=== PATIENT | female | born 1995 | race Caucasian/White ===

== ENCOUNTER 2023-07-29 12:01 | Inpatient (IN) | payer MEDICAID ==
[~2023-07-29] VITALS: Ht 162.6 cm; Wt 64.4 kg
[2023-07-29 12:30] VITALS: BP_SYST 131; PULSE 152; RESP 19; TEMP 97.9; O2SAT 98
[2023-07-29] MEDS: NACL 0.9% 1,000 ML IV ONE ×3 (13:13→21:57)
[2023-07-29 13:34] LABS: BASOPHILS % (AUTO) 0.1 % (0.0-2.0); HEMATOCRIT 51.2 % (36-48); HEMOGLOBIN 18.6 g/dL (12.0-16.0); LYMPHOCYTES # (AUTO) 0.1 K/uL (1.0-5.5); LYMPHOCYTES % (AUTO) 1.2 % (20.5-51.5); MEAN CORPUSCULAR HEMOGLOBIN 34 pg (27-31); MEAN CORPUSCULAR HGB CONC 36 % (32-36); MEAN CORPUSCULAR VOLUME 94 fL (79.0-98.0); MONOCYTES # (AUTO) 0.2 K/uL (0.0-1.0); MONOCYTES % (AUTO) 2.2 % (1.7-9.3); NEUTROPHILS # (AUTO) 9.8 K/uL (1.8-7.7); NEUTROPHILS % (AUTO) 96.5 % (40.0-70.0); PLATELET COUNT (AUTO) 234 K/uL (130-430); RED BLOOD CELL COUNT(AUTO) 5.47 MIL/uL (4.2-6.2); WHITE BLOOD COUNT (AUTO) 10.1 K/uL (4.8-10.8)
[2023-07-29] MEDS: ONDANSETRON HCL 4 MG/2 ML VIAL IVP ONE ×2 (13:43→19:46)
[2023-07-29 13:45] LABS: ANION GAP 18 (5-15); CALCIUM 10.3 mg/dL (8.4-11.0); CARBON DIOXIDE 23 mmol/L (23-29); CHLORIDE 91 mmol/L (98-107); CREATININE 2.33 mg/dL (0.55-1.30); GFR AFRICAN AMERICAN 32 mL/min (>90); GLUCOSE 81 mg/dL (74-106); POTASSIUM 4.4 mmol/L (3.5-5.1); SODIUM SERUM 132 mmol/L (136-145); UREA NITROGEN, BLOOD 24 mg/dL (8-21)
[2023-07-29 14:02] LABS: GFR NON AFRICAN-AMERICAN 26 mL/min (>90)
[2023-07-29 14:31] LABS: ACETAMINOPHEN < 1 ug/mL (1-30); ALCOHOL, BLOOD < 3 mg/dL (<10); SALICYLATE < 1 mg/dL (3-30)
[2023-07-29 14:48] LABS: COVID19 ANTIGEN SOFIA FIA NEGATIVE (NEGATIVE)
[2023-07-29 14:49] LABS: INFLUENZA TYPE A Negative (NEGATIVE); INFLUENZA TYPE B NEGATIVE (NEGATIVE)
[2023-07-29 14:55] LABS: CREATINE KINASE, TOTAL 163 U/L (26-192)
[2023-07-29 15:43] LABS: ALBUMIN 4.5 g/dL (3.4-4.8); BILIRUBIN,DIRECT 8.1 mg/dL (0.0-0.3); LIPASE 48 U/L (16-77); TOTAL BILIRUBIN 10.8 mg/dL (0.0-1.0); TOTAL PROTEIN, SERUM 8.4 g/dL (6.4-8.3)
[2023-07-29] MEDS: LORazepam 2 MG/ML VIAL IVP ONE ×2 (15:46→19:46)
[2023-07-29] MEDS: KETOROLAC TROMETHAMINE 30 MG VIAL IVP ONE (15:46)
[2023-07-29 16:18] LABS: ALANINE AMINOTRANSFERASE 15143 U/L (12-78); ASPARTATE AMINOTRANSFERASE 10554 U/L (10-37)
[2023-07-29 16:58] LABS: BILIRUBIN,URINE 3+ (NEGATIVE); BLOOD, URINE 2+ (NEGATIVE); CLARITY/URINE CLEAR (CLEAR); GLUCOSE,URINE TRACE (NEGATIVE); KETONES,URINE 1+ (NEGATIVE); LEUKOCYTE ESTERASE ,URINE NEGATIVE (NEGATIVE); PROTEIN URINE 3+ (NEGATIVE)
[2023-07-29 17:07] LABS: COLOR,URINE AMBER (YELLOW); NITRITE, URINE NEGATIVE (NEGATIVE)
[2023-07-29 17:08] LABS: BACTERIA,URINE FEW /HPF (None Seen); CALCIUM OXALATE CRYSTALS,UR 0-10 /HPF (None Seen); MUCUS,URINE None Seen /LPF (None Seen); RBC,URINE NONE SEEN /HPF (0-3); WBC,URINE 0-3 /HPF (0-3)
[2023-07-29] MEDS ORDERED: MAGNESIUM SULFATE 50 ML IV PRN (19:15)
[2023-07-29] MEDS ORDERED: MORPHINE 2 MG/ML INJ. SYRINGE IVP PRN (19:15)
[2023-07-29] MEDS ORDERED: MUPIROCIN 2% TOPICAL OINTMENT 22 GM NS PRN (19:15)
[2023-07-29] MEDS: ACETYLCYSTEINE 20% 6000 MG/30 ML VIAL (ORAL) PO ONE (20:10)
[2023-07-29] MEDS: THIAMINE HCL 100 MG TABLET PO SCH (20:30)
[2023-07-29 21:31] VITALS: O2SAT 100
[2023-07-29 21:40] VITALS: BP_SYST 133; PULSE 102; RESP 18; TEMP 98.2
[2023-07-29] MEDS: LACTULOSE 20 GM/30 ML UDC PO ONE (22:11)
[2023-07-29] MEDS: ONDANSETRON HCL 4 MG/2 ML VIAL IVP PRN (22:52)
[2023-07-29 22:55] VITALS: O2SAT 100
[2023-07-30 06:00] VITALS: BP_SYST 131; PULSE 92; RESP 17; TEMP 97.1; O2SAT 100
[2023-07-30 06:50] LABS: CALCIUM 8.4 mg/dL (8.4-11.0); CREATININE 3.49 mg/dL (0.55-1.30); POTASSIUM 4.5 mmol/L (3.5-5.1)
[2023-07-30 07:03] LABS: TOTAL BILIRUBIN 7.6 mg/dL (0.0-1.0); TOTAL PROTEIN, SERUM 5.4 g/dL (6.4-8.3)
[2023-07-30 07:48] VITALS: BP_SYST 127; PULSE 78; RESP 16; TEMP 98.4; O2SAT 100
[2023-07-30 08:03] LABS: BASOPHILS % (AUTO) 0.2 % (0.0-2.0); EOSINOPHILS # (AUTO) 0.1 K/uL (0.0-0.4); EOSINOPHILS % (AUTO) 2.4 % (0.0-4.0); HEMATOCRIT 37.5 % (36-48); HEMOGLOBIN 13.3 g/dL (12.0-16.0); LYMPHOCYTES # (AUTO) 0.4 K/uL (1.0-5.5); LYMPHOCYTES % (AUTO) 11.7 % (20.5-51.5); MEAN CORPUSCULAR HEMOGLOBIN 34 pg (27-31); MEAN CORPUSCULAR HGB CONC 35 % (32-36); MEAN CORPUSCULAR VOLUME 95 fL (79.0-98.0); MONOCYTES # (AUTO) 0.1 K/uL (0.0-1.0); MONOCYTES % (AUTO) 3.6 % (1.7-9.3); NEUTROPHILS # (AUTO) 2.8 K/uL (1.8-7.7); NEUTROPHILS % (AUTO) 82.1 % (40.0-70.0); PLATELET COUNT (AUTO) 148 K/uL (130-430); RED BLOOD CELL COUNT(AUTO) 3.96 MIL/uL (4.2-6.2); RED CELL DISTRIBUTION WIDTH 12.1 % (9.0-15.0); WHITE BLOOD COUNT (AUTO) 3.5 K/uL (4.8-10.8)
[2023-07-30] MEDS: MORPHINE 2 MG/ML INJ. SYRINGE IVP PRN (08:26)
[2023-07-30 09:27] VITALS: O2SAT 100
[2023-07-30] MEDS: NACL 0.9% 1,000 ML IV SCH (10:58)
[2023-07-30 12:07] VITALS: BP_SYST 136; PULSE 76; RESP 16; TEMP 98.6; O2SAT 100
[2023-07-30] MEDS: LORazepam 2 MG/ML VIAL IVP PRN (12:47)
[2023-07-30 16:00] VITALS: BP_SYST 117; PULSE 88; RESP 16; TEMP 98.6; O2SAT 100
[2023-07-30] MEDS: D5W IV ONE ×3 (17:20→22:00)
[2023-07-30] MEDS: ACETYLCYSTEINE IV ONE ×3 (17:20→22:00)
[2023-07-30 18:00] LABS: BARBITURATE, URINE NEGATIVE (NEG <=200); BENZODIAZEPINE, URINE POSITIVE (NEG <=150); CANNABINOID, URINE POSITIVE (NEG <=50); COCAINE, URINE NEGATIVE (NEG <=150); METHAMPHETAMINES SCREEN,URINE POSITIVE (NEG <=500); OPIATE, URINE POSITIVE (NEG <=100); PHENCYCLIDINE SCREEN,URINE NEGATIVE (NEG <=25); UR TRICYCLIC ANTIDEPRESSANTS NEGATIVE (NEG <=300); URINE AMPHETAMINE NEGATIVE (NEG <=500); URINE METHADONE NEGATIVE (NEG <=200); URINE OXYCODONE SCREEN NEGATIVE (NEG <=100)
[2023-07-31 07:05] LABS: BASOPHILS % (AUTO) 0.5 % (0.0-2.0); EOSINOPHILS # (AUTO) 0.1 K/uL (0.0-0.4); EOSINOPHILS % (AUTO) 2.9 % (0.0-4.0); HEMATOCRIT 36.6 % (36-48); HEMOGLOBIN 12.9 g/dL (12.0-16.0); LYMPHOCYTES # (AUTO) 0.6 K/uL (1.0-5.5); LYMPHOCYTES % (AUTO) 11.8 % (20.5-51.5); MEAN CORPUSCULAR HEMOGLOBIN 34 pg (27-31); MEAN CORPUSCULAR HGB CONC 35 % (32-36); MEAN CORPUSCULAR VOLUME 95 fL (79.0-98.0); MONOCYTES # (AUTO) 0.3 K/uL (0.0-1.0); MONOCYTES % (AUTO) 5.6 % (1.7-9.3); NEUTROPHILS # (AUTO) 3.8 K/uL (1.8-7.7); NEUTROPHILS % (AUTO) 79.2 % (40.0-70.0); PLATELET COUNT (AUTO) 141 K/uL (130-430); RED BLOOD CELL COUNT(AUTO) 3.85 MIL/uL (4.2-6.2); RED CELL DISTRIBUTION WIDTH 12.1 % (9.0-15.0); WHITE BLOOD COUNT (AUTO) 4.8 K/uL (4.8-10.8)
[2023-07-31 07:18] LABS: INR 1.7 (0.8-1.2); PROTHROMBIN TIME 17.6 SECS (9.5-12.5)
[2023-07-31 07:31] LABS: ALBUMIN 2.8 g/dL (3.4-4.8); CALCIUM 8.7 mg/dL (8.4-11.0); CREATININE 4.13 mg/dL (0.55-1.30); POTASSIUM 3.9 mmol/L (3.5-5.1); TOTAL BILIRUBIN 7.9 mg/dL (0.0-1.0); TOTAL PROTEIN, SERUM 5.3 g/dL (6.4-8.3)
[2023-07-31 08:00] VITALS: BP_SYST 145; PULSE 79; RESP 16; TEMP 98.4; O2SAT 100
[2023-07-31] MEDS: FOLIC ACID 1 MG TABLET PO SCH (08:27)
[2023-07-31 10:05] VITALS: O2SAT 100
[2023-07-31 11:30] VITALS: BP_SYST 114; PULSE 88; RESP 17; TEMP 97.5; O2SAT 98
[2023-07-31 15:52] VITALS: BP_SYST 132; PULSE 82; RESP 16; TEMP 98.2; O2SAT 100
[2023-07-31 20:30] VITALS: BP_SYST 133; PULSE 85; RESP 18; TEMP 97.9; O2SAT 95
[2023-07-31 22:00] VITALS: O2SAT 96
[2023-08-01 01:00] VITALS: BP_SYST 129; PULSE 83; RESP 18; TEMP 98.7; O2SAT 95
[2023-08-01 06:44] LABS: BASOPHILS % (AUTO) 0.5 % (0.0-2.0); EOSINOPHILS # (AUTO) 0.3 K/uL (0.0-0.4); EOSINOPHILS % (AUTO) 7.4 % (0.0-4.0); HEMATOCRIT 32.5 % (36-48); HEMOGLOBIN 11.4 g/dL (12.0-16.0); LYMPHOCYTES # (AUTO) 0.7 K/uL (1.0-5.5); LYMPHOCYTES % (AUTO) 19.9 % (20.5-51.5); MEAN CORPUSCULAR HEMOGLOBIN 34 pg (27-31); MEAN CORPUSCULAR HGB CONC 35 % (32-36); MEAN CORPUSCULAR VOLUME 96 fL (79.0-98.0); MONOCYTES # (AUTO) 0.5 K/uL (0.0-1.0); MONOCYTES % (AUTO) 12.8 % (1.7-9.3); NEUTROPHILS # (AUTO) 2.1 K/uL (1.8-7.7); NEUTROPHILS % (AUTO) 59.4 % (40.0-70.0); PLATELET COUNT (AUTO) 136 K/uL (130-430); RED CELL DISTRIBUTION WIDTH 12.6 % (9.0-15.0); WHITE BLOOD COUNT (AUTO) 3.5 K/uL (4.8-10.8)
[2023-08-01 08:00] VITALS: BP_SYST 122; PULSE 75; RESP 18; TEMP 97.5; O2SAT 99
[2023-08-01 10:47] LABS: BASOPHILS % (AUTO) 0.4 % (0.0-2.0); EOSINOPHILS # (AUTO) 0.2 K/uL (0.0-0.4); EOSINOPHILS % (AUTO) 4.8 % (0.0-4.0); HEMATOCRIT 32.7 % (36-48); HEMOGLOBIN 11.6 g/dL (12.0-16.0); LYMPHOCYTES # (AUTO) 0.4 K/uL (1.0-5.5); LYMPHOCYTES % (AUTO) 10.7 % (20.5-51.5); MEAN CORPUSCULAR HEMOGLOBIN 34 pg (27-31); MEAN CORPUSCULAR HGB CONC 35 % (32-36); MEAN CORPUSCULAR VOLUME 96 fL (79.0-98.0); MONOCYTES # (AUTO) 0.5 K/uL (0.0-1.0); NEUTROPHILS # (AUTO) 2.4 K/uL (1.8-7.7); NEUTROPHILS % (AUTO) 70.1 % (40.0-70.0); PLATELET COUNT (AUTO) 146 K/uL (130-430); RED BLOOD CELL COUNT(AUTO) 3.41 MIL/uL (4.2-6.2); RED CELL DISTRIBUTION WIDTH 12.7 % (9.0-15.0); WHITE BLOOD COUNT (AUTO) 3.4 K/uL (4.8-10.8)
[2023-08-01 11:04] LABS: INR 1.5 (0.8-1.2); PROTHROMBIN TIME 15.6 SECS (9.5-12.5)
[2023-08-01 11:12] LABS: ALBUMIN 2.6 g/dL (3.4-4.8); CALCIUM 8.2 mg/dL (8.4-11.0); CREATININE 3.26 mg/dL (0.55-1.30); POTASSIUM 3.4 mmol/L (3.5-5.1); TOTAL BILIRUBIN 6.8 mg/dL (0.0-1.0); TOTAL PROTEIN, SERUM 5.2 g/dL (6.4-8.3)
[2023-08-01 12:00] VITALS: BP_SYST 123; PULSE 74; RESP 18; TEMP 97.3; O2SAT 96
[2023-08-01 16:00] VITALS: BP_SYST 120; RESP 18; TEMP 98.2; O2SAT 99
[2023-08-01 20:30] VITALS: BP_SYST 128; PULSE 78; RESP 20; TEMP 97.5; O2SAT 96
[2023-08-01 22:00] VITALS: O2SAT 95
[2023-08-01] MEDS: DOCUSATE SODIUM 100 MG CAPSULE PO PRN (22:30)
[2023-08-02] MEDS: POTASSIUM CHLORIDE 20 MEQ TABLET.ER PO PRN (00:25)
[2023-08-02 01:00] VITALS: BP_SYST 129; PULSE 84; RESP 20; TEMP 98.7; O2SAT 96
[2023-08-02 03:06] LABS: HEPATITIS A AB, IgM Negative (Negative); HEPATITIS B CORE AB, IgM Negative (Negative); HEPATITIS B SURFACE AG Negative (Negative); HEPATITIS C VIRUS AB Non Reactive (Non Reactive)
[2023-08-02 06:14] LABS: BASOPHILS % (AUTO) 0.4 % (0.0-2.0); EOSINOPHILS # (AUTO) 0.3 K/uL (0.0-0.4); EOSINOPHILS % (AUTO) 6.9 % (0.0-4.0); HEMATOCRIT 31.7 % (36-48); HEMOGLOBIN 11.1 g/dL (12.0-16.0); MEAN CORPUSCULAR HEMOGLOBIN 34 pg (27-31); MEAN CORPUSCULAR HGB CONC 35 % (32-36); MEAN CORPUSCULAR VOLUME 97 fL (79.0-98.0); MONOCYTES # (AUTO) 0.7 K/uL (0.0-1.0); MONOCYTES % (AUTO) 16.9 % (1.7-9.3); NEUTROPHILS # (AUTO) 1.9 K/uL (1.8-7.7); NEUTROPHILS % (AUTO) 49.8 % (40.0-70.0); PLATELET COUNT (AUTO) 145 K/uL (130-430); RED BLOOD CELL COUNT(AUTO) 3.28 MIL/uL (4.2-6.2); RED CELL DISTRIBUTION WIDTH 12.7 % (9.0-15.0); WHITE BLOOD COUNT (AUTO) 3.9 K/uL (4.8-10.8)
[2023-08-02 06:31] LABS: INR 1.4 (0.8-1.2); PROTHROMBIN TIME 13.9 SECS (9.5-12.5)
[2023-08-02 06:34] LABS: ALBUMIN 2.4 g/dL (3.4-4.8); BILIRUBIN,DIRECT 3.8 mg/dL (0.0-0.3); TOTAL BILIRUBIN 4.8 mg/dL (0.0-1.0); TOTAL PROTEIN, SERUM 4.8 g/dL (6.4-8.3)
[2023-08-02 08:00] VITALS: BP_SYST 108; PULSE 64; RESP 16; TEMP 97.2; O2SAT 97
[2023-08-02 11:22] VITALS: BP_SYST 128; PULSE 81; RESP 16; TEMP 97.2; O2SAT 95
[2023-08-02 13:06] LABS: CALCIUM 8.3 mg/dL (8.4-11.0); CREATININE 2.93 mg/dL (0.55-1.30); POTASSIUM 4.1 mmol/L (3.5-5.1)
[2023-08-02 15:09] VITALS: BP_SYST 117; PULSE 66; RESP 16; TEMP 97.7; O2SAT 96
[2023-08-02 20:00] VITALS: BP_SYST 121; PULSE 73; RESP 18; TEMP 97.4; O2SAT 97
[2023-08-03] VITALS: BP_SYST 128; PULSE 78; RESP 18; TEMP 97.8; O2SAT 96
[2023-08-03] MEDS: NITROGLYCERIN 0.4 MG TAB.SUBL SL ONE (00:26)
[2023-08-03 06:49] LABS: BASOPHILS % (AUTO) 0.5 % (0.0-2.0); EOSINOPHILS # (AUTO) 0.3 K/uL (0.0-0.4); EOSINOPHILS % (AUTO) 7.3 % (0.0-4.0); HEMOGLOBIN 11.1 g/dL (12.0-16.0); LYMPHOCYTES % (AUTO) 25.3 % (20.5-51.5); MEAN CORPUSCULAR HEMOGLOBIN 34 pg (27-31); MEAN CORPUSCULAR HGB CONC 35 % (32-36); MEAN CORPUSCULAR VOLUME 97 fL (79.0-98.0); MONOCYTES # (AUTO) 0.6 K/uL (0.0-1.0); MONOCYTES % (AUTO) 16.9 % (1.7-9.3); NEUTROPHILS # (AUTO) 1.9 K/uL (1.8-7.7); PLATELET COUNT (AUTO) 143 K/uL (130-430); RED BLOOD CELL COUNT(AUTO) 3.28 MIL/uL (4.2-6.2); RED CELL DISTRIBUTION WIDTH 12.9 % (9.0-15.0); WHITE BLOOD COUNT (AUTO) 3.8 K/uL (4.8-10.8)
[2023-08-03 06:55] LABS: INR 1.3 (0.8-1.2); PROTHROMBIN TIME 13.3 SECS (9.5-12.5)
[2023-08-03 07:38] LABS: ALBUMIN 2.4 g/dL (3.4-4.8); BILIRUBIN,DIRECT 2.7 mg/dL (0.0-0.3); CALCIUM 8.1 mg/dL (8.4-11.0); CREATININE 2.16 mg/dL (0.55-1.30); POTASSIUM 3.7 mmol/L (3.5-5.1); TOTAL BILIRUBIN 3.5 mg/dL (0.0-1.0); TOTAL PROTEIN, SERUM 5.1 g/dL (6.4-8.3)
[2023-08-03 08:24] VITALS: BP_SYST 144; PULSE 71; RESP 19; TEMP 97.9; O2SAT 98
[2023-08-03 08:28] VITALS: O2SAT 95
[2023-08-03] MEDS: CARVEDILOL 3.125 MG TABLET (COREG) PO ONE (12:32)
[2023-08-03 12:35] VITALS: BP_SYST 122; PULSE 88; RESP 16; TEMP 98.6
[2023-08-03 13:22] VITALS: BP_SYST 113; PULSE 65; RESP 18; TEMP 98; O2SAT 96
[2023-08-03] MEDS ORDERED: CARVEDILOL 3.125 MG TABLET (COREG) PO SCH (21:00)
== END 2023-08-03 14:00 | disposition home or self-care (01) | DRG 280 ==
LOC: SED 12:01 → STU 19:02 → SMU 07-31 23:13
PROVIDERS: ADMIT Family Medicine; ATTEND Family Medicine
DX: K71.10 Toxic liver disease with hepatic necrosis, without coma (principal); K70.10 Alcoholic hepatitis without ascites; N17.0 Acute kidney failure with tubular necrosis; E44.0 Moderate protein-calorie malnutrition; E72.4 Disorders of ornithine metabolism; D68.9 Coagulation defect, unspecified; E86.0 Dehydration; F10.10 Alcohol abuse, uncomplicated; F14.90 Cocaine use, unspecified, uncomplicated; N18.9 Chronic kidney disease, unspecified; Z68.24 Body mass index [BMI] 24.0-24.9, adult; F19.10 Other psychoactive substance abuse, uncomplicated; R00.0 Tachycardia, unspecified; K76.0 Fatty (change of) liver, not elsewhere classified; Z20.822 Contact with and (suspected) exposure to COVID-19; X58.XXXA Exposure to other specified factors, initial encounter; T39.1X5A Adverse effect of 4-Aminophenol derivatives, initial encounter
CPT/HCPCS: 36415; 76700; 80048; 80053; 80074; 80076; 80307; 81000; 81001; 81015; 82140; 82550; 83605; 83690; 83735; 84484; 85025; 85610; 87040; 93005; 96361; 96374; 96375; 99285; G0378; G0480; G0481; G0482; J0132; J1885; J2060; J2270; J2405; J7060; J7608